=== PATIENT | male | born 1970 | race American Indian/Alaskan Native ===

== ENCOUNTER 2016-04-28 17:41 | Emergency (ER) | payer OTHER ==
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
--- NOTE | 2016-04-28 20:19 | Cat Scan Report ---
FINAL REPORT PROCEDURE: CT ABDOMEN PELVIS WO CON TECHNIQUE: Computerized axial tomography of the abdomen and pelvis was performed without intravenous contrast. This study is performed without intravascular contrast material and its sensitivity for abdominal and pelvic pathology, including neoplasms, inflammation, abscess, free fluid, thrombosis, arterial dissection and infarction, is reduced compared with a contrast enhanced study. HISTORY: lt flank pain with hemturia COMPARISON: No prior studies are available for comparison. FINDINGS: Visualized lower thorax: No significant abnormality. Liver: Moderately enlarged liver with diffuse fatty infiltration. Spleen: Normal size and attenuation. Gallbladder and biliary system: Contracted gallbladder with small gallstones. Pancreas: Normal. Adrenals: Normal. Kidneys: Scattered tiny calculi in the kidneys as follows: Bilateral renal calculi measuring 2 millimeters and 1 millimeter in the left upper kidney 1 millimeter left mid kidney and left mid to lower kidney. 1 x 2 millimeters in the right mid kidney and sub millimeter calculus in the upper pole right kidney and 1 millimeter upper pole right kidney. GI tract: No oral contrast. Scattered stool density. Scattered diverticulosis. Normal caliber appendix axial 77.. Lymph nodes and mesentery: Stranding in the left paracentral upper abdomen related to a small left paracentral ventral abdominal herniation of fat through a 1 centimeter defect. This does not involve bowel.. Vasculature: Normal. Bladder: Mildly prominent bladder wall 5-6 millimeters, nonspecific. Reproductive organs: Mildly heterogeneous prostate gland. Peritoneum: No free fluid. Musculoskeletal structures: Moderate to severe broad disc bulging with central disc protrusion L5-S1 with slight listhesis and severe disc degenerative changes. Moderate to severe bilateral neuroforaminal narrowing at this level.. Moderate broad disc bulge L4-5 with slight right paracentral component. Mild disc bulge L3-4.. Consider MRI lumbar spine elective basis to further evaluate. Other: Small umbilical and bilateral inguinal herniations fat. IMPRESSION: Bilateral renal calculi without definite obstruction seen. Small gallstones without definite acute cholecystitis. Small left paracentral ventral herniation of mesenteric fat without bowel involvement. Degenerative changes lumbar spine. Details above. Followup advised as warranted
[2016-04-28 20:47] LABS: Basophils % (Auto) 0.5 % (0.0-1.8); Blood Urea Nitrogen 16 mg/dL (9-20); Calcium 9.3 mg/dL (8.4-10.2); Carbon Dioxide 28 mmol/L (22-30); Chloride 101.1 mmol/L (98-107); Eosinophils % (Auto) 0.8 % (0.0-4.3); Glucose 65 mg/dL (75-100); Hematocrit 47.3 % (35.5-45.6); Hemoglobin 15.8 gm/dl (11.8-15.2); Mean Corpuscular HGB Conc 33 % (32-34); Mean Corpuscular Hemoglobin 30 pg (28-32); Mean Corpuscular Volume 91 fl (84-94); Platelet Count 257 K/mm3 (140-440); Potassium 4.2 mmol/L (3.6-5.0); Red Blood Count 5.19 M/mm3 (3.65-5.03); Red Cell Distribution Width 13.9 % (13.2-15.2); Sodium 142 mmol/L (137-145)
[2016-04-28 20:58] LABS: Anion Gap 17 mmol/L
[2016-04-29 03:53] LABS: Bacteria,Urine 4+ /HPF (Negative); Bilirubin,Urine NEG (Negative); Blood,Urine SM (Negative); Ketones,Urine NEG (Negative); Leukocyte Esterase,Urine MOD (Negative); Mucus,Urine 3+ /HPF; Nitrite,Urine POS (Negative); Protein,Urine <15 mg/dL mg/dL (Negative); Urobilinogen,Urine < 2.0 mg/dL (<2.0)
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
[2016-04-29 10:43] VITALS: BP 133/75
== END 2016-04-29 10:42 | disposition home or self-care (01) ==
LOC: ED 17:41
DX: N20.0 Calculus of kidney (principal); N39.0 Urinary tract infection, site not specified; K43.9 Ventral hernia without obstruction or gangrene; F17.200 Nicotine dependence, unspecified, uncomplicated
CPT/HCPCS: 36415; 74176; 80048; 81001; 85025